=== PATIENT | male | born 1940 | race Caucasian/White ===

== ENCOUNTER 2018-02-20 14:58 | Emergency (ER) | payer MEDICARE, BC ==
[2018-02-20] MEDS ORDERED: Sodium Chloride 0.9% 10 ML Syringe FLUSH PRN ×2 (15:07)
--- NOTE | 2018-02-20 15:11 | EDM.PDOC ---
ED HPI GENERAL MEDICAL PROBLEM - General Chief Complaint: Neuro Symptoms/Deficits Stated Complaint: POSSIBLE STROKE?? Time Seen by Provider: 02/20/18 15:06 Source of Information: Reports: Patient, RN Notes Reviewed History Limitations: Reports: Physical Impairment - History of Present Illness INITIAL COMMENTS - FREE TEXT/NARRATIVE: 77-year-old gentleman presents to the emergency department today with complaint of difficulty speaking, he was at a local store earlier today no difficulties sudden onset of difficulty speaking, his speech consists of a few words but mostly incomprehensible words and he does not follow commands properly, however he moves all extremities independently - Related Data Allergies Allergy/AdvReac Type Severity Reaction Status Date / Time No Known Allergies Allergy Verified 02/20/18 15:42 Home Meds: Home Meds ALPRAZolam [Xanax] 0.5 mg PO BID 02/20/18 [History] Albuterol [Ventolin HFA] 1 puff .XX QID PRN 02/20/18 [History] Aspirin 81 mg PO DAILY 02/20/18 [History] Cyanocobalamin (Vitamin B12) [Vitamin B12] 1,500 mcg IM ASDIRECTED 02/20/18 [ History] Fluticasone/Salmeterol [Advair 500-50] 2 puff INH BID 02/20/18 [History] Foam Bandage [Mepilex] 1 each TP ASDIRECTED 02/20/18 [History] Metoprolol Succinate [Toprol XL] 25 mg PO BID 02/20/18 [History] Nitroglycerin 0.4 mg SL ASDIRECTED 02/20/18 [History] Umeclidinium [place] [Incruse Ellipta*] 62.5 mcg IH DAILY 02/20/18 [History] Varenicline [Chantix] 1 mg PO DAILY 02/20/18 [History] Past Medical History Cardiovascular History: Reports: CAD, High Cholesterol, Hypertension, Stents Respiratory History: Reports: Asthma Oncologic (Cancer) History: Reports: Prostate Social & Family History - Family History Family Medical History: Unobtainable - Tobacco Use Smoking Status *Q: Former Smoker ED ROS GENERAL - Review of Systems Review Of Systems: Unable To Obtain ED EXAM, NEURO - Physical Exam Exam: See Below Exam Limited By: Physical Impairment General Appearance: Alert, Other (Difficulty with speech) Eye Exam: Bilateral Eye: EOMI, Normal Inspection, PERRL Throat/Mouth: Normal Inspection, Normal Lips, Normal Teeth, Normal Gums, Normal Oropharynx, Normal Voice, No Airway Compromise Head Exam: Atraumatic, Normocephalic Neck: Normal Inspection, Supple, Non-Tender, Full Range of Motion Respiratory/Chest: No Respiratory Distress, Lungs Clear, Normal Breath Sounds, No Accessory Muscle Use Cardiovascular: Regular Rate, Rhythm, No Murmur GI/Abdominal: Soft, Non-Tender Neurological: Alert, CN II-XII Intact, Other (Warnicke's aphasia) Course - Vital Signs Last Recorded V/S: Last Vital Signs Temp 97.0 F 02/20/18 15:14 Pulse 64 02/20/18 15:14 Resp 24 H 02/20/18 15:14 BP 181/80 H 02/20/18 15:14 Pulse Ox 95 02/20/18 15:14 - Orders/Labs/Meds Orders: Active Orders 24 hr Category Date Time Status EKG Documentation Completion [RC] ASDIRECTED Care 02/20/18 15:08 Active Peripheral IV Care [RC] . DIRECTED Care 02/20/18 15:08 Active CBC WITH AUTO DIFF [HEME] Urgent Lab 02/20/18 15:25 Results SEDIMENTATION RATE MANUAL [HEME] Urgent Lab 02/20/18 15:25 Results Sodium Chloride 0.9% [Saline Flush] Med 02/20/18 15:07 Active 10 ml FLUSH ASDIRECTED PRN Sodium Chloride 0.9% [Saline Flush] Med 02/20/18 15:07 Active 10 ml FLUSH ASDIRECTED PRN Peripheral IV Insertion Adult [OM.PC] Urgent Oth 02/20/18 15:07 Ordered EKG 12 Lead [EK] Urgent Ther 02/20/18 15:07 Ordered Medication Orders Sodium Chloride (Saline Flush) 10 ml FLUSH ASDIRECTED PRN PRN Reason: Keep Vein Open Last Admin: 02/20/18 15:52 Dose: 10 ml Sodium Chloride (Saline Flush) 10 ml FLUSH ASDIRECTED PRN PRN Reason: Keep Vein Open Last Admin: 02/20/18 15:53 Dose: 10 ml Labs: Laboratory Tests 02/20/18 02/20/18 02/20/18 Range/Units 15:25 15:25 15:25 WBC 5.7 (4.5-11.0) K/uL RBC 3.68 L (4.30-5.90) M/uL Hgb 11.4 L (12.0-15.0) g/dL Hct 35.5 L (40.0-54.0) % MCV 97 (80-98) fL MCH 31 (27-31) pg MCHC 32 (32-36) % Plt Count 152 (150-400) K/uL Neut % (Auto) 65 (36-66) % Lymph % (Auto) 22 L (24-44) % Davis % (Auto) 9 H (2-6) % Eos % (Auto) 3 (2-4) % Baso % (Auto) 1 (0-1) % PT 10.5 (9.5-12.0) sec INR 0.98 (0.80-1.20) APTT 27.1 (27.0-36.0) sec Sodium 140 (140-148) mmol/L Potassium 4.0 (3.6-5.2) mmol/L Chloride 106 (100-108) mmol/L Carbon Dioxide 23 (21-32) mmol/L Anion Gap 11.5 (5.0-14.0) mmol/L BUN 21 H (7-18) mg/dL Creatinine 0.8 (0.8-1.3) mg/dL Est Cr Clr Drug Dosing 79.84 mL/min Estimated GFR (MDRD) > 60 (>60) Glucose 108 H (74-106) mg/dL Lactic Acid (0.4-2.0) mmol/L Calcium 8.5 (8.5-10.1) mg/dL Total Bilirubin 1.1 H (0.2-1.0) mg/dL AST 35 (15-37) U/L ALT 42 (12-78) U/L Alkaline Phosphatase 403 H (46-116) U/L Ammonia (11-32) mmol/L Troponin I < 0.017 (0.000-0.056) ng/mL Total Protein 6.8 (6.4-8.2) g/dL Albumin 3.7 (3.4-5.0) g/dL Globulin 3.1 (2.3-3.5) g/dL Albumin/Globulin Ratio 1.2 (1.2-2.2) Ethyl Alcohol mg/dL 02/20/18 02/20/18 02/20/18 Range/Units 15:25 15:25 15:25 WBC (4.5-11.0) K/uL RBC (4.30-5.90) M/uL Hgb (12.0-15.0) g/dL Hct (40.0-54.0) % MCV (80-98) fL MCH (27-31) pg MCHC (32-36) % Plt Count (150-400) K/uL Neut % (Auto) (36-66) % Lymph % (Auto) (24-44) % Davis % (Auto) (2-6) % Eos % (Auto) (2-4) % Baso % (Auto) (0-1) % PT (9.5-12.0) sec INR (0.80-1.20) APTT (27.0-36.0) sec Sodium (140-148) mmol/L Potassium (3.6-5.2) mmol/L Chloride (100-108) mmol/L Carbon Dioxide (21-32) mmol/L Anion Gap (5.0-14.0) mmol/L BUN (7-18) mg/dL Creatinine (0.8-1.3) mg/dL Est Cr Clr Drug Dosing mL/min Estimated GFR (MDRD) (>60) Glucose (74-106) mg/dL Lactic Acid 1.4 (0.4-2.0) mmol/L Calcium (8.5-10.1) mg/dL Total Bilirubin (0.2-1.0) mg/dL AST (15-37) U/L ALT (12-78) U/L Alkaline Phosphatase (46-116) U/L Ammonia 20 (11-32) mmol/L Troponin I (0.000-0.056) ng/mL Total Protein (6.4-8.2) g/dL Albumin (3.4-5.0) g/dL Globulin (2.3-3.5) g/dL Albumin/Globulin Ratio (1.2-2.2) Ethyl Alcohol < 3 mg/dL Meds: Medications Generic Name Dose Route Start Last Admin Trade Name Freq PRN Reason Stop Dose Admin Sodium Chloride 10 ml 02/20/18 15:07 02/20/18 15:52 Saline Flush FLUSH 10 ml ASDIRECTED PRN Administration Keep Vein Open Sodium Chloride 10 ml 02/20/18 15:07 02/20/18 15:53 Saline Flush FLUSH 10 ml ASDIRECTED PRN Administration Keep Vein Open Discontinued Medications Generic Name Dose Route Start Last Admin Trade Name Darinq PRN Reason Stop Dose Admin Lorazepam 4 mg 02/20/18 16:15 Ativan IVPUSH 02/20/18 16:16 ONETIME ONE Rocuronium [place] 50 mg 02/20/18 16:27 Zemuron IV 02/20/18 16:28 ONETIME ONE - Re-Assessments/Exams Free Text/Narrative Re-Assessment/Exam: 02/20/18 16:[address] results of CT scan he did have a seizure was given 4 mg Ativan IV with minimal effect elected to proceed to intubation please see anesthesia notes for details, intubation was done with combination propofol and rocuronium Departure - Departure Time of Disposition: 16:37 Disposition: DC/Tfer to Acute Hospital 02 Condition: Poor Clinical Impression: Intraparenchymal hemorrhage of brain, Wernicke dysphasia - Discharge Information Referrals: David Degroot MD [Primary Care Provider] - Forms: ED Department Discharge Critical Care Note - Critical Care Note Total Time (mins): 40 - My Orders Last 24 Hours: My Active Orders 02/20/18 15:07 Sodium Chloride 0.9% [Saline Flush] 10 ml FLUSH ASDIRECTED PRN Sodium Chloride 0.9% [Saline Flush] 10 ml FLUSH ASDIRECTED PRN Peripheral IV Insertion Adult [OM.PC] Urgent EKG 12 Lead [EK] Urgent 02/20/18 15:08 EKG Documentation Completion [RC] ASDIRECTED Peripheral IV Care [RC] . DIRECTED 02/20/18 15:25 CBC WITH AUTO DIFF [HEME] Urgent SEDIMENTATION RATE MANUAL [HEME] Urgent - Assessment/Plan Last 24 Hours: My Active Orders 02/20/18 15:07 Sodium Chloride 0.9% [Saline Flush] 10 ml FLUSH ASDIRECTED PRN Sodium Chloride 0.9% [Saline Flush] 10 ml FLUSH ASDIRECTED PRN Peripheral IV Insertion Adult [OM.PC] Urgent EKG 12 Lead [EK] Urgent 02/20/18 15:08 EKG Documentation Completion [RC] ASDIRECTED Peripheral IV Care [RC] . DIRECTED 02/20/18 15:25 CBC WITH AUTO DIFF [HEME] Urgent SEDIMENTATION RATE MANUAL [HEME] Urgent Plan: Assessment Acuity = acute Site and laterality = intraparenchymal hemorrhage, parietal region edematous area concern for underlying mass complicated in a patient with known history of alcohol dependence, history of prostate cancer concern for possible metastases, hypertension Etiology = unclear etiology Manifestations = new onset seizure status post intubation Location of injury = Home Lab values = lab work unremarkable CT scan describes the intraparenchymal bleed and the possible mass described above Plan Called and discussed case with Dr. Canales neurology [facility], kindly accepted the patient in transport he will be transported via [facility] This note was dictated using [employer] voice recognition software please call with any questions on syntax or grammar.
--- NOTE | 2018-02-20 16:07 | CT ---
Head wo Cont CLINICAL HISTORY: Warneke'sdysphagia COMPARISON: None TECHNIQUE: Transverse scans were obtained from the base of the skull through the vertex without IV co ntrast on a multislice, multidetector CT scanner. Auto dosage reduction and iterative reconstruction techniques employed. FINDINGS: There is low-attenuation in the left temporoparietal junction region commonly within the wh ite matter suggesting vasogenic edema. There are small areas of hemorrhage over the left the parietal convexities which may be contusion. Impression: Region of low-attenuation in the left parietal temporal junction region predominantly wit hin the white matter suggesting vasogenic edema. Underlying lesion must be excluded the. Postcontrast CT or MR brain complete is recommended Small areas of parenchymal hemorrhage are seen in the left the parietal convexity
[2018-02-20] MEDS ORDERED: LORazepam 2 MG/ML SDV IVPUSH ONE (16:15)
[2018-02-20] MEDS ORDERED: Rocuronium 50 MG/5 ML Vial IV ONE (16:27)
[2018-02-20] MEDS ORDERED: Propofol 200 MG/20 ML SDV ONE (16:30)
--- NOTE | 2018-02-20 19:10 | ANES ---
DATE OF SERVICE: 02/20/2018 INDICATION: Mr. Guido is a 77-year-old male patient in the emergency room as to which Dr. Jeffriesr, called me down for an intubation. This gentleman apparently has an intracranial hemorrhage. He is about ready to get air lifted to [place]. TECHNIQUE: He is quite combative and we elected to go ahead and do 200 mg of IV propofol. He settled down as to which I intubated him with 3 MAC and inserted an 8.0 endotracheal tube into the trachea. He had bilateral breath sounds and positive end-tidal CO2. I then gave him 50 mg of rocuronium after the intubation. He tolerated the procedure very nicely. His vital signs remained stable. There were no anesthesia complications noted. Gary Gonzales CRNA /[id number]
--- NOTE | 2018-02-21 08:43 | CR ---
CHEST: Portable CLINICAL HISTORY:Endotracheal intubation COMPARISON:None FINDINGS: Study is limited due to positioning. The there are diffuse bilateral infiltrates and some vascular cephalization. There is an endotracheal tube in the upper trachea. It is approximately 10 cm from the carole.. IMPRESSION: Limited study. Endotracheal intubation. The ET tube is in the upper trachea Vascular cephalization and bilateral infiltrates
--- NOTE | 2018-02-21 08:46 | CR ---
CHEST: Portable CLINICAL HISTORY:Intubation COMPARISON: Earlier 02/20/2018 FINDINGS: Endotracheal tube has advanced slightly now approximately 9 cm from the carole. Nasogastri c tube is been advanced to the. The distal aspect is off the image margin. There is improved aeration IMPRESSION: Endotracheal tube and nasogastric tubes as above Improved aeration of both lung klein when compared to prior study
== END 2018-02-20 17:20 ==
LOC: JP.ED 14:58
DX: I61.9 Nontraumatic intracerebral hemorrhage, unspecified (principal); F80.2 Mixed receptive-expressive language disorder; I25.10 Atherosclerotic heart disease of native coronary artery without angina pectoris; E78.00 Pure hypercholesterolemia, unspecified; I10 Essential (primary) hypertension; J45.909 Unspecified asthma, uncomplicated; Z87.891 Personal history of nicotine dependence; Z79.82 Long term (current) use of aspirin; Z79.899 Other long term (current) drug therapy; R40.2432 Glasgow coma scale score 3-8, at arrival to emergency department
CPT/HCPCS: 31500; 36415; 51702; 70450; 71045; 80053; 82140; 83605; 84484; 85025; 85610; 85651; 85730; 93005; 96374; 99291; G0480; J2060; J2704; J7050